=== PATIENT | male | born 1975 | race Two or more races ===

== ENCOUNTER 2022-03-26 23:59 | Emergency (ER) | payer OTHER ==
[~2022-03-26] VITALS: Ht 177.8 cm; Wt 74.8 kg
[2022-03-27] MEDS ORDERED: LORAZEPAM INJ 2 MG/ML VIAL ONE (00:04)
[2022-03-27] MEDS ORDERED: HALOPERIDOL LACTATE INJ 5 MG/ML VIAL ONE (00:04)
[2022-03-27] MEDS ORDERED: diphenhydrAMINE HCL 50 MG/ML VIAL ONE (00:04)
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
[2022-03-27] MEDS ORDERED: diphenhydrAMINE HCL 50 MG/ML VIAL IM ONE (00:30)
[2022-03-27] MEDS ORDERED: HALOPERIDOL LACTATE INJ 5 MG/ML VIAL IM ONE (00:30)
[2022-03-27] MEDS ORDERED: LORAZEPAM INJ 2 MG/ML VIAL IM ONE (00:30)
[2022-03-27 00:51] LABS: BILIRUBIN,URINE SMALL (NEGATIVE); COLOR,URINE YELLOW (YELLOW); LEUKOCYTE ESTERASE ,URINE NEGATIVE (NEGATIVE); NITRITE, URINE NEGATIVE (NEGATIVE); PROTEIN,URINE NEGATIVE (NEGATIVE); UGLUCOSE NEGATIVE (NEGATIVE); UROBILINOGEN,URINE 0.2 EU/dL (0.2)
[2022-03-27 00:52] LABS: BASOPHILS % (AUTO) 0.5 % (0.0-2.0); EOSINOPHILS % (AUTO) 2.5 % (0.0-6.0); HEMATOCRIT 38 % (39-51); HEMOGLOBIN 12.6 g/dL (13.5-17.5); LYMPHOCYTES % (AUTO) 23.4 % (20.0-44.0); MEAN CORPUSCULAR HGB CONC 34 g/dl (31.0-36.0); MEAN CORPUSCULAR VOLUME 97 fL (80-96); MONOCYTES # (AUTO) 0.4 K/uL (0.1-1.30); MONOCYTES % (AUTO) 8.6 % (2.0-12.0); NEUTROPHILS # (AUTO) 2.8 K/uL (1.8-8.9); PLATELET COUNT (AUTO) 178 K/uL (150-450); RED BLOOD CELL COUNT(AUTO) 3.86 MIL/uL (4.5-6.0); WHITE BLOOD COUNT (AUTO) 4.3 K/uL (4.3-11.0)
[2022-03-27 01:06] LABS: ALBUMIN 3.3 g/dL (3.4-5.0); BILIRUBIN,DIRECT 0.1 mg/dL (0.0-0.2); BILIRUBIN,TOTAL 0.3 mg/dL (0.2-1.0); CALCIUM, SERUM 7.9 mg/dL (8.5-10.1); POTASSIUM 3.3 mmol/L (3.5-5.1); TOTAL PROTEIN, SERUM 6.8 g/dL (6.4-8.2)
[2022-03-27 17:36] VITALS: BP 133/72
--- NOTE | 2022-03-27 17:50 | NUR ---
AMBULATING WITH STEADY GAIT TO THE BATHROOM,CALM,COOPERATIVE
--- NOTE | 2022-03-27 18:05 | NUR ---
SEEN AND RE-EVALUATED BY DR MIRANDA,TOLD TO WAIT FOR ACI
[2022-03-29] MEDS ORDERED: diphenhydrAMINE HCL 50 MG/ML VIAL ONE (00:52)
[2022-03-29] MEDS ORDERED: HALOPERIDOL LACTATE INJ 5 MG/ML VIAL ONE (00:53)
[2022-03-29] MEDS ORDERED: LORAZEPAM INJ 2 MG/ML VIAL ONE (00:53)
== END 2022-03-27 18:39 | disposition home or self-care (01) ==
LOC: ER 03-27 00:10 → EDBD 03-27 00:10 → ER 03-27 18:39
DX: F19.10 Other psychoactive substance abuse, uncomplicated (principal); Z59.00 Homelessness unspecified
CPT/HCPCS: 99285; 96372; 85025; 80048; 80076; 81003; 36415; 80143; 80320; 80307; J2060; J1200; J1630; G0480

== ENCOUNTER 2022-03-27 23:18 | Emergency (ER) | payer OTHER ==
[~2022-03-27] VITALS: Ht 167.6 cm; Wt 72.1 kg
[2022-03-27] MEDS ORDERED: HALOPERIDOL LACTATE INJ 5 MG/ML VIAL ONE (23:21)
[2022-03-27] MEDS ORDERED: LORAZEPAM INJ 2 MG/ML VIAL ONE (23:21)
[2022-03-27] MEDS ORDERED: diphenhydrAMINE HCL 50 MG/ML VIAL ONE (23:21)
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
[2022-03-27] MEDS ORDERED: diphenhydrAMINE HCL 50 MG/ML VIAL IM ONE (23:30)
[2022-03-27] MEDS ORDERED: HALOPERIDOL LACTATE INJ 5 MG/ML VIAL IM ONE (23:30)
[2022-03-27] MEDS ORDERED: LORAZEPAM INJ 2 MG/ML VIAL IM ONE (23:30)
--- NOTE | 2022-03-27 23:34 | NUR ---
COVID ANTIGEN SWAB AND URINE COLLECTED, SENT TO LAB.
[2022-03-28 00:15] LABS: BASOPHILS % (AUTO) 0.6 % (0.0-2.0); HEMATOCRIT 38 % (39-51); LYMPHOCYTES # (AUTO) 1.1 K/uL (0.8-4.8); LYMPHOCYTES % (AUTO) 22.3 % (20.0-44.0); MEAN CORPUSCULAR HGB CONC 34 g/dl (31.0-36.0); MEAN CORPUSCULAR VOLUME 96 fL (80-96); MONOCYTES # (AUTO) 0.4 K/uL (0.1-1.30); MONOCYTES % (AUTO) 7.7 % (2.0-12.0); NEUTROPHILS # (AUTO) 3.2 K/uL (1.8-8.9); NEUTROPHILS % (AUTO) 66.4 % (43.0-81.0); PLATELET COUNT (AUTO) 159 K/uL (150-450); RED BLOOD CELL COUNT(AUTO) 4.02 MIL/uL (4.5-6.0); WHITE BLOOD COUNT (AUTO) 4.8 K/uL (4.3-11.0)
[2022-03-28 00:28] LABS: CREATININE 0.7 mg/dL (0.6-1.3); POTASSIUM 3.6 mmol/L (3.5-5.1)
[2022-03-28 00:47] LABS: BILIRUBIN,DIRECT 0.1 mg/dL (0.0-0.2); BILIRUBIN,TOTAL 0.3 mg/dL (0.2-1.0); TOTAL PROTEIN, SERUM 6.5 g/dL (6.4-8.2)
[2022-03-28 00:54] LABS: BILIRUBIN,URINE NEGATIVE (NEGATIVE); COLOR,URINE YELLOW (YELLOW); LEUKOCYTE ESTERASE ,URINE NEGATIVE (NEGATIVE); NITRITE, URINE NEGATIVE (NEGATIVE); PROTEIN,URINE NEGATIVE (NEGATIVE); UGLUCOSE NEGATIVE (NEGATIVE); UROBILINOGEN,URINE 0.2 EU/dL (0.2)
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
[2022-03-28] MEDS ORDERED: LORAZEPAM INJ 2 MG/ML VIAL ONE (18:29)
[2022-03-28] MEDS ORDERED: LORAZEPAM 1 MG TABLET PO ONE (18:30)
[2022-03-28] MEDS ORDERED: LORAZEPAM INJ 2 MG/ML VIAL IM ONE (18:30)
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
[2022-03-28] MEDS ORDERED: MIDAZOLAM 50 MG/10 ML VIAL ONE (20:41)
[2022-03-28] MEDS ORDERED: MIDAZOLAM HCL 5 MG/5ML VIAL ONE (20:43)
[2022-03-28] MEDS ORDERED: MIDAZOLAM HCL 2 MG/2ML VIAL IM ONE (21:00)
[2022-03-29] MEDS ORDERED: LORAZEPAM INJ 2 MG/ML VIAL IM ONE (01:00)
[2022-03-29] MEDS ORDERED: diphenhydrAMINE HCL 50 MG/ML VIAL IM ONE (01:00)
[2022-03-29] MEDS ORDERED: HALOPERIDOL LACTATE INJ 5 MG/ML VIAL IM ONE (01:00)
--- NOTE | 2022-03-29 05:54 | NUR ---
PT IN BED SLEEPING. VSS. RESP EVEN AND NONLABORED. SAFETY MEASURES IN PLACE. 1:1 SITTER AT PT'S BEDSIDE
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
--- NOTE | 2022-03-29 11:00 | NUR ---
PT PROVIDED W/ MEAL TRAY.
[2022-03-29] MEDS ORDERED: MIDAZOLAM HCL 2 MG/2ML VIAL IM ONE (17:30)
[2022-03-29] MEDS ORDERED: MIDAZOLAM 50 MG/10 ML VIAL ONE (17:45)
--- NOTE | 2022-03-30 00:54 | NUR ---
PROVIDED PT WITH WATER AND JUICES
[2022-03-30] MEDS ORDERED: ACETAMINOPHEN 325 MG TABLET PO ONE (05:30)
[2022-03-30] MEDS ORDERED: ACETAMINOPHEN 325 MG TABLET ONE (05:47)
[2022-03-30 09:33] VITALS: BP 132/89
--- NOTE | 2022-03-30 09:34 | NUR ---
Patient discharged to home/HOMELESS in stable condition. HOMELESS WAIVER SIGNED BY PT, RESOURCES GIVEN BUT NOT ACCEPTED. Written and verbal after care instructions given. Patient verbalizes understanding of instruction.
== END 2022-03-30 09:34 | disposition home or self-care (01) ==
LOC: ER 23:25
DX: R46.2 Strange and inexplicable behavior (principal); F19.10 Other psychoactive substance abuse, uncomplicated; Z59.00 Homelessness unspecified; Z20.822 Contact with and (suspected) exposure to COVID-19
CPT/HCPCS: 99285; 96372 ×6; 85025; 80048; 82010; 80076; 81003; 36415 ×2; 87426; 80320; 80307; J2060 ×3; J1200 ×2; J1630 ×2; C9803; J2250 ×2; G0480